=== PATIENT | female | born 1935 | race Caucasian/White ===

== ENCOUNTER 2017-10-30 03:37 | Inpatient (IN) | payer MEDICARE, BC ==
[2017-10-30] VITALS (16 sets, daily range): BP systolic 80–136; BP diastolic 37–60
[~2017-10-30] VITALS: Ht 139.7 cm; Wt 51.7 kg
[2017-10-30] MEDS ORDERED: GABAPENTIN100 MG ORAL (03:54)
[2017-10-30] MEDS ORDERED: PROPRANOLOL HCL40 MG ORAL (03:54)
[2017-10-30] MEDS ORDERED: MELATONIN5 M6 PO (03:54)
[2017-10-30] MEDS ORDERED: VERAPAMIL HCL80 MG ORAL (03:54)
[2017-10-30] MEDS ORDERED: LACTULOSE20 GM/301 ORAL (03:54)
[2017-10-30] MEDS ORDERED: TRAMADOL HCL50 MG ORAL (03:54)
[2017-10-30] MEDS ORDERED: ATIVAN0.5 MG ORAL (03:54)
[2017-10-30] MEDS ORDERED: PRAMIPEXOLE D0.25 MG ORAL (03:54)
[2017-10-30] MEDS ORDERED: FOLIC ACID1 MG ORAL (03:54)
[2017-10-30] MEDS ORDERED: ZETIA10 MG ORAL (03:54)
[2017-10-30] MEDS ORDERED: SERTRALINE HCL25 MG ORAL (03:54)
[2017-10-30] MEDS ORDERED: TORSEMIDE10 MG PO (03:54)
[2017-10-30] MEDS ORDERED: METOCLOPRAMIDE H5 M1 ORAL (03:54)
[2017-10-30] MEDS ORDERED: SYNTHROID75 MCG ORAL (03:54)
[2017-10-30] MEDS ORDERED: SENNA8.6 M2 PO (03:54)
[2017-10-30] MEDS ORDERED: HYDROXYZINE HCL25 M1 PO (03:54)
[2017-10-30] MEDS ORDERED: LANSOPRAZOLE30 MG ORAL (03:54)
[2017-10-30] MEDS ORDERED: PANTOPRAZOLE SO40 MG ORAL (03:54)
[2017-10-30] MEDS ORDERED: BETHANECHOL CHL10 MG ORAL (03:54)
--- NOTE | 2017-10-30 03:58 | Emergency Room Report ---
History of Present Illness General Chief Complaint: Dyspnea/Respdistress Source: Family Member Present Illness HPI Patient presents by paramedics Full reports of respiratory distress Patient was seen by her primary physician yesterday did not appear to have any major symptoms Over the night patient had acute decompensation with respiratory difficulty rat poisoner called paramedics Patient has a feeding tube in place Family reports patient has DO NOT RESUSCITATE status Patient has history of hypertension Unknown regarding recent fever Patient herself is nonverbal and not providing any input Allergies: Coded Allergies: No Known Allergies (Unverified , 10/30/17) Patient History Limited by: medical condition Past Medical History: see triage record Pertinent Family History: unable to obtain Now: No Reviewed Nursing Documentation: PMH: Agreed, PSxH: Agreed Nursing Documentation-PMH Hx Hypertension: Yes Hx Pacemaker: Yes Hx COPD: Yes Review of Systems All Other Systems: limited - Other than the ones mentioned in the history of present illness all others are reviewed however they do stay limited due to the patient's mental status Physical Exam Vital Signs Date Time Temp Pulse Resp B/P (MAP) Pulse Ox O2 Delivery O2 Flow Rate FiO2 10/30/17 03:37 102.4 76 20 156/56 86 Room Air Sp02 EP Interpretation: reviewed, abnormal - 86% is interpreted as low General Appearance: severe distress - Patient is tachypneic with audible crackles and rales Head: normocephalic, atraumatic Eyes: bilateral eye PERRL, bilateral eye EOMI ENT: normal pharynx, no angioedema Neck: full range of motion, supple Respiratory: crackles - Diffusely with audible rales patient is tachypneic with signs of retraction, Cardiovascular #1: regular rate, rhythm, no edema Gastrointestinal: non tender, soft Musculoskeletal: other - No obvious focal deficit, patient however presents in extreme status Neurologic: responsive - to physical stimuli Skin: normal color, no rash Lymphatic: no adenopathy Procedures Critical Care Time Critical Care Time 40 minutes for multiple re\re evaluations initial critical presentation concern for life threatening pathology not including any procedural time Medical Decision Making Diagnostic Impression: Primary Impression: Dyspnea Additional Impressions: Pneumonia Hypoxia Elevated troponin ER Course Patient is a fairly complex patient with multiple differential to consideration including but not limited to cardiac cardiopulmonary and vascular emergencies Upon arrival the patient appears ill Requiring BiPAP for oxygenation Patient received bosselation antibiotic with consideration of possible aspiration pneumonia Patient's troponin is also elevated Is all concerning findings and patient admitted to high level of care Speaking to the patient's primary physician, he reported the patient has had multiple admissions to [facility], history of CHF along with pneumonia Labs Test 10/30/17 03:48 10/30/17 03:55 10/30/17 04:40 10/30/17 05:10 Arterial Blood pH 7.452 (7.350-7.450) Arterial Blood Partial Pressure CO2 48.9 mmHg (35.0-45.0) Arterial Blood Partial Pressure O2 63.3 mmHg (75.0-100.0) Arterial Blood HCO3 33.3 mmol/L (22.0-26.0) Arterial Blood Oxygen Saturation 92.7 % (92.0-98.0) Arterial Blood Base Excess 8.3 Manuel Test Positive White Blood Count 16.0 K/UL (4.8-10.8) Red Blood Count 3.41 M/UL (4.20-5.40) Hemoglobin 10.4 G/DL (12.0-16.0) Hematocrit 31.5 % (37.0-47.0) Mean Corpuscular Volume 92 FL (80-99) Mean Corpuscular Hemoglobin 30.6 PG (27.0-31.0) Mean Corpuscular Hemoglobin Concent 33.1 G/DL (32.0-36.0) Red Cell Distribution Width 13.6 % (11.6-14.8) Platelet Count 202 K/UL (150-450) Mean Platelet Volume 8.9 FL (6.5-10.1) Neutrophils (%) (Auto) 78.5 % (45.0-75.0) Lymphocytes (%) (Auto) 8.0 % (20.0-45.0) Monocytes (%) (Auto) 11.9 % (1.0-10.0) Eosinophils (%) (Auto) 0.4 % (0.0-3.0) Basophils (%) (Auto) 1.2 % (0.0-2.0) Prothrombin Time 10.0 SEC (9.30-11.50) Prothromb Time International Ratio 1.0 (0.9-1.1) Activated Partial Thromboplast Time 28 SEC (23-33) Sodium Level 134 MMOL/L (136-145) Potassium Level 4.7 MMOL/L (3.5-5.1) Chloride Level 93 MMOL/L (98-107) Carbon Dioxide Level 36 MMOL/L (21-32) Anion Gap 5 mmol/L (5-15) Blood Urea Nitrogen 52 mg/dL (7-18) Creatinine 1.5 MG/DL (0.55-1.30) Estimat Glomerular Filtration Rate mL/min (>60) Glucose Level 110 MG/DL (74-106) Lactic Acid Level 2.10 mmol/L (0.66-2.22) 2.20 mmol/L (0.66-2.22) Calcium Level 9.6 MG/DL (8.5-10.1) Total Bilirubin 0.9 MG/DL (0.2-1.0) Aspartate Amino Transf (AST/SGOT) 58 U/L (15-37) Alanine Aminotransferase (ALT/SGPT) 48 U/L (12-78) Alkaline Phosphatase 80 U/L (46-116) Total Creatine Kinase 101 U/L (26-308) Creatine Kinase MB 1.0 NG/ML (0.0-3.6) Creatine Kinase MB Relative Index 0.9 Troponin I 0.174 ng/mL (0.000-0.056) Pro-B-Type Natriuretic Peptide 7958 pg/mL (0-125) Total Protein 9.0 G/DL (6.4-8.2) Albumin 3.3 G/DL (3.4-5.0) Globulin 5.7 g/dL Albumin/Globulin Ratio 0.6 (1.0-2.7) Urine Color Yellow Urine Appearance Clear Urine pH 6 (4.5-8.0) Urine Specific [place] 1.010 (1.005-1.035) Urine Protein Negative (NEGATIVE) Urine Glucose (UA) Negative (NEGATIVE) Urine Ketones Negative (NEGATIVE) Urine Occult Blood Negative (NEGATIVE) Urine Nitrite Negative (NEGATIVE) Urine Bilirubin Negative (NEGATIVE) Urine Urobilinogen Normal MG/DL (0.0-1.0) Urine Leukocyte Esterase 1+ (NEGATIVE) Urine RBC 0-2 /HPF (0 - 2) Urine WBC 0-2 /HPF (0 - 2) Urine Squamous Epithelial Cells Few /LPF (NONE/OCC) Urine Bacteria Few /HPF (NONE) EKG Diagnostic Results Rate: normal Rhythm: other - atrial paced ST Segments: no acute changes Rhythm Strip Diag. Results EP Interpretation: yes Rate: 76 Rhythm: no PVC's, no ectopy, other - paced Chest X-Ray Diagnostic Results Chest X-Ray Diagnostic Results : Chest X-Ray Ordered: Yes # of Views/Limited/Complete: 1 View Indication: Shortness of Breath EP Interpretation: Yes Interpretation: no effusion, no pneumothorax, other - Pulmonary congestion, right parahilar markings and a right lower lobe infiltrate Impression: Other - Congestion and right-sided markings Electronically Signed by: Patricia Dykes DO Last Vital Signs Date Time Temp Pulse Resp B/P (MAP) Pulse Ox O2 Delivery O2 Flow Rate FiO2 10/30/17 03:37 102.4 76 20 156/56 86 Room Air Status: improved Disposition: ADMITTED INPATIENT Condition: Critical PATRICIA DYKES D.O. Oct 30, 2017 03:58
[2017-10-30 04:00] LABS: BASOPHILS % (AUTO) 1.2 % (0.0-2.0); EOSINOPHILS % (AUTO) 0.4 % (0.0-3.0); HEMATOCRIT 31.5 % (37.0-47.0); HEMOGLOBIN 10.4 G/DL (12.0-16.0); MEAN CORPUSCULAR VOLUME 92 FL (80-99); MONOCYTES % (AUTO) 11.9 % (1.0-10.0); NEUTROPHILS % (AUTO) 78.5 % (45.0-75.0); PLATELET COUNT 202 K/UL (150-450); RED BLOOD COUNT 3.41 M/UL (4.20-5.40); RED CELL DISTRIBUTION WIDTH 13.6 % (11.6-14.8)
[2017-10-30] MEDS ORDERED: cefTRIAXone 1 GM in NS 55 ML IVPB ONE (04:00)
[2017-10-30] MEDS ORDERED: Albuterol ud Inhalation HHN ONE (04:00)
[2017-10-30] MEDS ORDERED: Vancomycin 1 GM in NS 275 ML IVPB ONE (04:00)
[2017-10-30 04:21] LABS: ANION GAP 5 mmol/L (5-15); BLOOD UREA NITROGEN 52 mg/dL (7-18); CALCIUM 9.6 MG/DL (8.5-10.1); CARBON DIOXIDE 36 MMOL/L (21-32); CHLORIDE 93 MMOL/L (98-107); CREATININE 1.5 MG/DL (0.55-1.30); POTASSIUM 4.7 MMOL/L (3.5-5.1); SODIUM 134 MMOL/L (136-145)
[2017-10-30] MEDS ORDERED: Acetaminophen 650 MG SUPP RECTAL ONE (04:34)
[2017-10-30 04:35] LABS: ALANINE AMINOTRANSFERASE 48 U/L (12-78); ALBUMIN 3.3 G/DL (3.4-5.0); ALBUMIN/GLOBULIN RATIO 0.6 (1.0-2.7); ALKALINE PHOSPHATASE 80 U/L (46-116); ASPARTATE AMINO TRANSFERASE 58 U/L (15-37); BILIRUBIN,TOTAL 0.9 MG/DL (0.2-1.0); CREATINE KINASE 101 U/L (26-308)
[2017-10-30 04:36] LABS: APPEARANCE,URINE CLEAR; BILIRUBIN, URINE NEGATIVE (NEGATIVE); GLUCOSE, URINE (UA) NEGATIVE (NEGATIVE); KETONES,URINE NEGATIVE (NEGATIVE); LEUKOCYTE ESTERASE ,URINE 1+ (NEGATIVE); PH,URINE 6 (4.5-8.0); PROTEIN,URINE NEGATIVE (NEGATIVE); UROBILINOGEN,URINE NORMAL MG/DL (0.0-1.0)
[2017-10-30] MEDS ORDERED: Acetaminophen 650mg/20.3ml ONE (04:36)
[2017-10-30 04:46] LABS: COLOR,URINE YELLOW; NITRITE,URINE NEGATIVE (NEGATIVE)
[2017-10-30] MEDS ORDERED: Acetaminophen 650mg/20.3ml GT STA (04:55)
[2017-10-30] MEDS ORDERED: Vancomycin 1gm inj IVPB ONE (05:36)
[2017-10-30] MEDS ORDERED: NS 55ml IV ONE (06:00)
[2017-10-30] MEDS ORDERED: Sodium Chloride 500ML 500 ML IV ONE (06:15)
[2017-10-30] MEDS ORDERED: D5 1/2NS w/KCl 20mEq 1,000 ML IV SCH (10:46)
[2017-10-30] MEDS ORDERED: D5W w/KCl 20mEq 1,000 ML IV SCH (11:00)
[2017-10-30] MEDS ORDERED: Pantoprazole Inj IVP SCH (11:00)
[2017-10-30] MEDS ORDERED: Zosyn 3.375gm q12h **Extended infusion IVPB SCH ×2 (12:00)
--- NOTE | 2017-10-30 13:08 | Cardiology Report ---
APPROVED REPORT EKG Measurement Heart [id number] Abnormal ECG Sinus rhythm. Dual-Chamber Pacemaker . 100% V paced.
--- NOTE | 2017-10-30 17:28 | Diagnostic Imaging Report ---
Indication: Dyspnea Technique: XRAY Chest 1v Comparison: None Findings: Heart is enlarged. The chunky mitral annular calcifications. Left-sided dual-lead pacer with lead tips in the expected regions of the right atrium and ventricle. Mediastinal contours are sharp. There is interstitial opacification/edema. There are patchy bilateral airspace opacities. There is no pleural effusion or pneumothorax. Spinal fixation hardware partially visualized. No acute osseous abnormality is seen. Impression: Cardiomegaly with interstitial opacification/edema. Findings may be related to CHF/fluid overload. Pneumonia not entirely excluded. Clinical correlation and follow-up exam recommended. Study acquired via the emergency department however patient admitted to the hospital time of dictation of final report.
--- NOTE | 2017-10-30 21:15 | History and Physical Report ---
DATE OF ADMISSION: 10/30/2017 CHIEF COMPLAINT: Short of breath. HISTORY OF PRESENT ILLNESS: The patient came from home by paramedics. She has been ill for several days with some cough, but suddenly developed worsening symptoms of high fever and the paramedics brought her to the emergency department. She was evaluated and found to have respiratory failure and sepsis with high fever and pneumonia. She was placed on BiPAP and admission was arranged. She is DNR according to the niece, who was at the bedside. PAST MEDICAL HISTORY: The patient had cervical fracture several years ago and has had dysphagia since that time. She has a long-term feeding tube and has had pneumonia a few times, the last being about nine months ago. 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 She has a history of hypertension and hypothyroidism. She has a pacemaker and has a history of COPD. MEDICATIONS: Reviewed and reconciled. ALLERGIES: None. REVIEW OF SYSTEMS: Cannot be obtained other than what is mentioned above. PHYSICAL EXAMINATION: VITAL SIGNS: The initial temperature was 102.4 degrees, but that has improved. Other vital signs showed low saturation, but that has improved. HEENT: Head is normocephalic. She has a face mask in place. CHEST: Has few rales. CARDIAC: Rhythm is regular. ABDOMEN: Soft and nontender with a G-tube in place. EXTREMITIES: Have no edema. LABORATORY AND DIAGNOSTIC DATA: Chest x-ray was reviewed and shows right lower lobe infiltrate. White count is elevated at 16,000, hemoglobin is low at 10.4. Blood gas was reviewed and shows chronic respiratory acidosis. The other laboratory studies were reviewed. IMPRESSION: 1. Acute respiratory failure. 2. Sepsis. 3. Aspiration pneumonia. 4. Chronic dysphagia with recurrent aspiration pneumonia. 5. Chronic obstructive pulmonary disease with chronic respiratory failure. 6. Chronic dysphagia with feeding tube. 7. Acute on chronic kidney disease with elevated creatinine of 1.5. 8. Elevated troponin, possible acute coronary syndrome. PLAN: The patient will be treated with antibiotics. BiPAP. Respiratory treatments. Cardiology consultation will be obtained. I have contacted her primary care physician to arrange for transfer to [facility] if possible according to the family's wishes. Stanislaw Epps M.D. DR: Damian JOB#: [id number] CC:
[2017-10-30] MEDS ORDERED: Acetaminophen 650mg/20.3ml NG PRN (23:45)
[2017-10-31] VITALS (27 sets, daily range): BP systolic 79–115; BP diastolic 35–78
[2017-10-31] MEDS: D5W w/KCl 20mEq 1,000 ML IV SCH ×3 (00:22→21:02)
--- NOTE | 2017-10-31 03:01 | Consultation ---
DATE OF CONSULTATION: 10/30/2017 CARDIOLOGY CONSULTATION CONSULTING PHYSICIAN: Alvin Jenkins M.D. REQUESTING PHYSICIAN: Stanislaw Epps M.D. REASON FOR CONSULTATION: Hypotension and elevated troponin level. HISTORY OF PRESENT ILLNESS: This is an 82-year-old female who lives at home with a caregiver and family members who was brought into the emergency room by paramedics. She had increasing shortness of breath and decompensated overnight. She does have a chronic feeding tube. She saw her primary care physician but was not sick as she became later that night. On initial evaluation in the emergency room, she was febrile to 102.4 with a stable blood pressure. She was then pancultured and admitted to the hospital for pneumonia with oral antibiotics initiated and was also given a dose of furosemide in the emergency room for perceived heart failure. Later that evening, she became increasingly hypotensive and was given a fluid challenge without adequate response. ICU transfer was initiated. PAST MEDICAL HISTORY: Cervical fracture, dysphagia, gastrostomy tube, hypothyroidism, hypertension, permanent pacemaker, and COPD. MEDICATIONS: Reviewed and reconciled. ALLERGIES: None. FAMILY HISTORY: Noncontributory. SOCIAL HISTORY: No record of smoking, alcohol, or substance abuse. REVIEW OF SYSTEMS: Advance directives for DNR. Otherwise detailed information cannot be reliably obtained at this time. PHYSICAL EXAMINATION: VITAL SIGNS: T-max 102.4 now afebrile, blood pressure on arrival 156/78, now 92/45, heart rate 66, and respiratory rate 15. The patient is on BiPAP support. Monitored rhythm is paced. Accessory muscle use. LUNGS: Bilateral rhonchi and rales. HEART: Regular rhythm and rate. Normal S1, paradoxically split S2. Cannot evaluate murmur due to loud respiratory sounds. ABDOMEN: Soft and nontender. G-tube intact. EXTREMITIES: With no edema. LABORATORY AND DIAGNOSTIC DATA: Chest x-ray reveals right lower lobe infiltrate and pulmonary venous congestion. White count 16 and hemoglobin 10. Chemistry panel reviewed. EKG revealed AV sequential pacing. IMPRESSION: 1. Aspiration pneumonia. 2. Sepsis. 3. Shock. 4. Acute respiratory failure. 5. Chronic respiratory acidosis. 6. Component of acute congestive heart failure. 7. Dysphagia with gastrostomy tube. 8. Acute coronary insufficiency with possible non-ST elevation infarction. 9. Permanent pacemaker. 10. Critical and guarded at this time. PLAN: 1. DNR/DNI based on advanced directives. 2. Pressor support. 3. Antimicrobials. 4. Respiratory hygiene. 5. Additional diuresis. 6. Hold all cardiac medications. 7. DVT and stress ulcer prophylaxis. 8. Antiplatelet therapy. Alvin Jenkins M.D. DR: NORY JOB#: [id number] CC:
[2017-10-31 06:11] LABS: HEMOGLOBIN 7.8 G/DL (12.0-16.0); MEAN CORPUSCULAR VOLUME 93 FL (80-99); PLATELET COUNT 149 K/UL (150-450); RED BLOOD COUNT 2.48 M/UL (4.20-5.40); RED CELL DISTRIBUTION WIDTH 13.2 % (11.6-14.8); WHITE BLOOD COUNT 13.8 K/UL (4.8-10.8)
[2017-10-31 06:32] LABS: ALANINE AMINOTRANSFERASE 44 U/L (12-78); ALBUMIN 2.3 G/DL (3.4-5.0); ALBUMIN/GLOBULIN RATIO 0.5 (1.0-2.7); ALKALINE PHOSPHATASE 69 U/L (46-116); ANION GAP 5 mmol/L (5-15); ASPARTATE AMINO TRANSFERASE 44 U/L (15-37); BILIRUBIN,TOTAL 0.6 MG/DL (0.2-1.0); BLOOD UREA NITROGEN 50 mg/dL (7-18); CALCIUM 8.4 MG/DL (8.5-10.1); CARBON DIOXIDE 30 MMOL/L (21-32); CHLORIDE 95 MMOL/L (98-107); CKMB 2.9 NG/ML (0.0-3.6); CREATINE KINASE 284 U/L (26-308); CREATININE 1.7 MG/DL (0.55-1.30); POTASSIUM 4.7 MMOL/L (3.5-5.1); SODIUM 130 MMOL/L (136-145)
[2017-10-31] MEDS ORDERED: Aspirin Baby 81mg GT SCH (09:00)
[2017-10-31] MEDS ORDERED: Pantoprazole Inj IVP SCH (09:00)
[2017-10-31] MEDS: Piperacillin/Tazobactam 3.375 GM in NS 110 ML IVPB SCH ×2 (09:25→21:02)
--- NOTE | 2017-10-31 20:26 | Pulmonolgy Critical Care Note ---
Critical Care - Asmt/Plan Assessment/Plan: 1. Acute respiratory failure. 2. Sepsis. 3. Aspiration pneumonia. 4. Chronic dysphagia with recurrent aspiration pneumonia. 5. Chronic obstructive pulmonary disease with chronic respiratory failure. 6. Chronic dysphagia with feeding tube. 7. Acute on chronic kidney disease with elevated creatinine of 1.5. 8. Elevated troponin, possible acute coronary syndrome. PLAN: abx GT feeds bipap for now check abg and cxr in am unable to diurese due to hypotension, will reasses in am The patient will be treated with antibiotics. BiPAP. Respiratory treatments. 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 Discussed with: nurses, behavioral health case managerfranchise development manager - Objective Last 24 Hour Vital Signs Date Time Temp Pulse Resp B/P (MAP) Pulse Ox O2 Delivery O2 Flow Rate FiO2 10/31/17 19:11 70 21 103/40 100 Bi-pap 10/31/17 18:51 71 21 100 Facial 15.0 90 10/31/17 18:47 68 18 100 15.0 90 10/31/17 18:00 69 21 96/40 100 Bi-pap 90 10/31/17 17:20 70 21 100 Facial 60 10/31/17 17:00 69 21 87/36 100 Bi-pap 90 10/31/17 16:00 70 10/31/17 16:00 105/66 10/31/17 16:00 98.4 72 17 102/78 100 Bi-pap 90 10/31/17 16:00 90 10/31/17 15:05 68 23 100 Facial 60 10/31/17 15:00 70 21 95/69 100 Bi-pap 90 10/31/17 14:01 69 20 90/35 99 Bi-pap 90 10/31/17 13:00 67 19 89/51 100 Bi-pap 90 10/31/17 12:45 66 20 100 Facial 60 10/31/17 12:00 98.4 20 110/54 100 Bi-pap 90 10/31/17 12:00 65 10/31/17 12:00 90 10/31/17 11:00 67 19 92/38 100 Bi-pap 90 10/31/17 10:30 66 18 99 Facial 60 10/31/17 10:00 68 17 91/42 97 Bi-pap 90 10/31/17 09:05 65 18 98 Facial 60 10/31/17 09:00 67 18 108/40 96 Bi-pap 90 10/31/17 08:00 98.6 66 18 98/38 98 Bi-pap 90 10/31/17 08:00 90 10/31/17 08:00 67 10/31/17 07:20 68 20 96 Facial 60 10/31/17 07:00 66 17 102/42 95 Bi-pap 90 10/31/17 06:00 67 18 114/46 97 Bi-pap 90 10/31/17 05:16 66 18 98 Facial 60 10/31/17 05:00 69 16 91/51 99 Bi-pap 90 10/31/17 04:27 69 10/31/17 04:00 97.6 69 15 95/41 98 Bi-pap 90 10/31/17 04:00 90 10/31/17 03:13 62 16 98 Facial 70 10/31/17 03:00 70 16 103/43 99 Bi-pap 90 10/31/17 02:30 70 16 101/43 99 Bi-pap 90 10/31/17 02:00 68 16 83/44 99 Bi-pap 90 10/31/17 01:30 67 15 89/36 99 Bi-pap 90 10/31/17 01:30 67 14 99 Facial 80 10/31/17 01:00 66 14 84/38 99 Bi-pap 90 10/31/17 00:00 97.9 68 14 111/51 98 Bi-pap 90 10/31/17 00:00 90 10/30/17 23:50 67 10/30/17 23:45 66 15 92/45 98 Bi-pap 90 10/30/17 23:30 66 15 99/46 98 Bi-pap 90 10/30/17 23:16 90 10/30/17 23:15 64 15 100/45 98 Bi-pap 90 10/30/17 23:00 69 15 80/37 98 Bi-pap 90 10/30/17 22:57 64 16 100 Facial 90 10/30/17 22:49 63 10/30/17 22:45 97.4 69 14 136/52 98 Bi-pap 90 10/30/17 21:05 62 14 99 Facial 90 Status: awake Condition: critical Lungs: rales, rhonchi Heart: HR/BP unstable Abdomen: soft, non-tender Extremities: edema Micro: Microbiology Date/Time Source Procedure Growth Status 10/30/17 03:45 Blood Blood Culture - Preliminary NO GROWTH AFTER 24 HOURS Resulted 10/30/17 03:30 Blood Blood Culture - Preliminary NO GROWTH AFTER 24 HOURS Resulted 10/30/17 04:30 Nasal Nares Influenza Types A,B Antigen (MEGAN) - Final Complete Accucheck: 125 Blood Sugars: BS controlled Critical Care - Subjective ROS Limited/Unobtainable: Yes Interval Events: n bipap 09/22 TCV around 400 cc Condition: critical FI02: 90 Vent Support Breath Rate: 12 Vent Support Mode: BiLevel Sputum Amount: Moderate I&O: Intake and Output 10/30/17 10/31/17 19:00 07:00 Intake Total 0 ml 1485 ml Output Total 570 ml Balance 0 ml 915 ml Intake Oral 0 ml 0 ml IV Total 1485 ml Output Urine Total 570 ml Subjective: on bipap mild distress no reports of cp nv or bleeding not getting oob no fever noted still tachy CXR: cxr yesterday reviewed with chf and effusions Labs: Laboratory Tests Test 10/31/17 04:00 10/31/17 05:12 Troponin I 0.159 ng/mL (0.000-0.056) White Blood Count 13.8 K/UL (4.8-10.8) H Red Blood Count 2.48 M/UL (4.20-5.40) L Hemoglobin 7.8 G/DL (12.0-16.0) L Hematocrit 23.0 % (37.0-47.0) L Mean Corpuscular Volume 93 FL (80-99) Mean Corpuscular Hemoglobin 31.2 PG (27.0-31.0) H Mean Corpuscular Hemoglobin Concent 33.8 G/DL (32.0-36.0) Red Cell Distribution Width 13.2 % (11.6-14.8) Platelet Count 149 K/UL (150-450) L Mean Platelet Volume 9.0 FL (6.5-10.1) Neutrophils (%) (Auto) % (45.0-75.0) Lymphocytes (%) (Auto) % (20.0-45.0) Monocytes (%) (Auto) % (1.0-10.0) Eosinophils (%) (Auto) % (0.0-3.0) Basophils (%) (Auto) % (0.0-2.0) Differential Total Cells Counted 100 Neutrophils % (Manual) 75 % (45-75) Lymphocytes % (Manual) 14 % (20-45) L Monocytes % (Manual) 5 % (1-10) Eosinophils % (Manual) 0 % (0-3) Basophils % (Manual) 0 % (0-2) Band Neutrophils 6 % (0-8) Platelet Estimate Adequate Platelet Morphology Normal Hypochromasia 1+ Sodium Level 130 MMOL/L (136-145) L Potassium Level 4.7 MMOL/L (3.5-5.1) Chloride Level 95 MMOL/L (98-107) L Carbon Dioxide Level 30 MMOL/L (21-32) Anion Gap 5 mmol/L (5-15) Blood Urea Nitrogen 50 mg/dL (7-18) H Creatinine 1.7 MG/DL (0.55-1.30) H Estimat Glomerular Filtration Rate mL/min (>60) Glucose Level 107 MG/DL (74-106) H Calcium Level 8.4 MG/DL (8.5-10.1) L Magnesium Level 1.9 MG/DL (1.8-2.4) Total Bilirubin 0.6 MG/DL (0.2-1.0) Aspartate Amino Transf (AST/SGOT) 44 U/L (15-37) H Alanine Aminotransferase (ALT/SGPT) 44 U/L (12-78) Alkaline Phosphatase 69 U/L (46-116) Total Creatine Kinase 284 U/L (26-308) Creatine Kinase MB 2.9 NG/ML (0.0-3.6) Creatine Kinase MB Relative Index 1.0 Pro-B-Type Natriuretic Peptide 38800 pg/mL (0-125) H Total Protein 7.1 G/DL (6.4-8.2) Albumin 2.3 G/DL (3.4-5.0) L Globulin 4.8 g/dL Albumin/Globulin Ratio 0.5 (1.0-2.7) L KOSSUTH,HARISH DO Oct 31, 2017 20:26
[2017-10-31] MEDS ORDERED: traMADol 50mg tab GT PRN (20:45)
[2017-10-31] MEDS: Metoclopramide 10mg/10ml Liq NG SCH (22:26)
[2017-11-01] VITALS (12 sets, daily range): BP systolic 83–121; BP diastolic 33–67
--- NOTE | 2017-11-01 04:45 | Progress Note ---
DATE: 10/31/2017 CARDIOLOGY PROGRESS NOTE SUBJECTIVE: The patient remains in the intensive care unit due to low range of blood pressure. She is being tapered off pressors. She remains on BiPAP support at times. OBJECTIVE: VITAL SIGNS: Blood pressure 96/40, pulse 69, and respirations 21. LUNGS: Coarse breath sounds. Scattered rhonchi. Diminished at the left base. HEART: Regular rhythm and rate. Normal S1, S2 with no murmur. ABDOMEN: Soft. EXTREMITIES: Trace edema. IMPRESSION: 1. Sepsis shock. 2. Aspiration pneumonia. 3. Dysphagia. 4. Gastrostomy tube. 5. Chronic obstructive pulmonary disease. 6. Acute on chronic renal failure. 7. Acute myocardial ischemia. 8. Acute diastolic congestive heart failure. 9. Pleural effusion. PLAN: 1. Unable to diurese with low blood pressure. 2. Continue BiPAP support. 3. Nutrition by G-tube. 4. Antimicrobials. 5. Respiratory hygiene. 6. Taper off pressors and no resumption. 7. Thoracentesis maybe asymptomatic or beneficial. Alvin Jenkins M.D. DR: SADIQ JOB#: [id number] CC:
[2017-11-01] MEDS: Metoclopramide 10mg/10ml Liq NG SCH ×4 (05:53→21:14)
[2017-11-01] MEDS ORDERED: Vancomycin 750mg/NS 250ml 250 ML IVPB SCH (06:00)
[2017-11-01] MEDS ORDERED: Vancomycin 750mg/NS 250ml IVPB SCH (06:00)
[2017-11-01 08:28] LABS: BASOPHILS % (AUTO) 0.3 % (0.0-2.0); EOSINOPHILS % (AUTO) 1.3 % (0.0-3.0); HEMATOCRIT 24.3 % (37.0-47.0); HEMOGLOBIN 8.2 G/DL (12.0-16.0); LYMPHOCYTES % (AUTO) 9.2 % (20.0-45.0); MEAN CORPUSCULAR VOLUME 92 FL (80-99); MONOCYTES % (AUTO) 7.9 % (1.0-10.0); NEUTROPHILS % (AUTO) 81.3 % (45.0-75.0); PLATELET COUNT 168 K/UL (150-450); RED BLOOD COUNT 2.64 M/UL (4.20-5.40); RED CELL DISTRIBUTION WIDTH 12.8 % (11.6-14.8); WHITE BLOOD COUNT 11.1 K/UL (4.8-10.8)
[2017-11-01 08:52] LABS: ANION GAP 6 mmol/L (5-15); BLOOD UREA NITROGEN 37 mg/dL (7-18); CALCIUM 8.4 MG/DL (8.5-10.1); CARBON DIOXIDE 28 MMOL/L (21-32); CHLORIDE 97 MMOL/L (98-107); CREATININE 1.4 MG/DL (0.55-1.30); POTASSIUM 4.5 MMOL/L (3.5-5.1); SODIUM 130 MMOL/L (136-145)
[2017-11-01] MEDS: Piperacillin/Tazobactam 3.375 GM in NS 110 ML IVPB SCH ×3 (09:00→21:14)
[2017-11-01] MEDS: D5W w/KCl 20mEq 1,000 ML IV SCH ×3 (10:00→23:48)
[2017-11-01] MEDS: Aspirin Baby 81mg GT SCH (10:12)
[2017-11-01] MEDS: Pantoprazole Inj IVP SCH (10:13)
--- NOTE | 2017-11-01 13:07 | Diagnostic Imaging Report ---
Indication: Cough Technique: XRAY Chest 1v Comparison: 10/30/2017 Findings: Heart size and mediastinal contours are stable. Pacemaker again noted. Interval worsening of aeration with development of focal opacity in the right midlung. There is interstitial opacification/edema. Question trace right pleural effusion. No pneumothorax. Impression: Cardiomegaly with interstitial opacification/edema and development of focal opacity in the right midlung most concerning for pneumonia. Clinical correlation and follow-up exam recommended.
[2017-11-01] MEDS ORDERED: LORazepam 0.5mg tab GT SCH (16:30)
[2017-11-01] MEDS: LORazepam 0.5mg tab GT SCH (17:24)
--- NOTE | 2017-11-01 19:46 | Pulmonology Progress Note ---
Assessment/Plan Assessment/Plan 1. Acute respiratory failure. 2. Sepsis. 3. Aspiration pneumonia. incrased RML infiltrate 4. Chronic dysphagia with recurrent aspiration pneumonia. 5. Chronic obstructive pulmonary disease with chronic respiratory failure. 6. Chronic dysphagia with feeding tube. 7. Acute on chronic kidney disease with elevated creatinine of 1.5. 8. Elevated troponin, possible acute coronary syndrome. PLAN: abx GT feeds bipap for now qhs and prn distress add nebs check cxr in am unable to diurese due to hypotension, will reassess in am fu with cards recommendations pt is DN titrate o2 wound care may need thoracentesis as well Subjective ROS Limited/Unobtainable: Yes Constitutional: Reports: no symptoms Allergies: Coded Allergies: No Known Allergies (Unverified , 10/30/17) Subjective off bipap at this time on FM awake no distress tolerating tf no reports of CP NV or bleeding does not get oob CG at the bedside CXR wtih new RML infiltrate, suspected PNA Objective Last 24 Hour Vital Signs Date Time Temp Pulse Resp B/P (MAP) Pulse Ox O2 Delivery O2 Flow Rate FiO2 11/01/17 17:08 99.0 86 20 107/50 Venturi Mask 45 86 11/01/17 16:00 85 11/01/17 16:00 99.0 86 20 107/50 97 Venturi Mask 45 86 11/01/17 12:00 80 11/01/17 12:00 80 11/01/17 12:00 97.7 82 20 105/67 93 Venturi Mask 45 82 11/01/17 11:27 Venturi Mask 10.0 45 11/01/17 11:26 98 Venturi Mask 10.0 45 11/01/17 09:29 69 18 99 Facial 60 11/01/17 08:03 64 11/01/17 08:00 60 11/01/17 07:18 66 15 99 Facial 60 11/01/17 07:00 64 14 121/42 100 Bi-pap 60 11/01/17 06:00 64 15 97/44 100 Bi-pap 60 11/01/17 05:27 66 17 100 Facial 60 11/01/17 05:00 62 16 103/35 100 Bi-pap 60 11/01/17 04:00 98.0 66 16 109/40 100 Bi-pap 60 1/14/18 04:00 60 11/01/17 03:50 64 11/01/17 03:41 64 17 100 Facial 15.0 60 11/01/17 03:00 62 17 83/43 100 Bi-pap 60 11/01/17 02:00 61 15 83/40 100 Bi-pap 60 11/01/17 01:29 65 15 100 15.0 60 11/01/17 01:00 65 15 91/33 100 Bi-pap 60 11/01/17 00:00 98.0 66 17 86/35 100 Bi-pap 60 11/01/17 00:00 60 11/01/17 00:00 66 10/31/17 23:26 69 18 100 Facial 60 10/31/17 23:00 70 21 88/49 100 Bi-pap 60 10/31/17 22:00 72 20 114/42 100 Bi-pap 60 10/31/17 21:33 70 15 100 Facial 60 10/31/17 21:00 69 19 93/40 100 Bi-pap 60 10/31/17 20:00 60 10/31/17 20:00 98.6 71 19 79/54 100 Bi-pap 60 10/31/17 20:00 71 Intake and Output 10/31/17 11/01/17 19:00 07:00 Intake Total 75 ml 1510.000 ml Output Total 590 ml 1045 ml Balance -515 ml 465.000 ml Intake Oral 0 ml 0 ml IV Total 75 ml 1260.000 ml Tube Feeding 100 ml Other 150 ml Output Urine Total 590 ml 1045 ml General Appearance: cachetic HEENT: atraumatic, anicteric Respiratory/Chest: rhonchi Cardiovascular: normal rate, regular rhythm, murmur systolic, edema Abdomen: soft, non tender, no organomegaly Extremities: no clubbing Skin: no ulcers Neurologic/Psychiatric: responsive, disoriented Microbiology Date/Time Source Procedure Growth Status 10/30/17 03:45 Blood Blood Culture - Preliminary NO GROWTH AFTER 48 HOURS Resulted 10/30/17 03:30 Blood Blood Culture - Preliminary NO GROWTH AFTER 48 HOURS Resulted 10/30/17 04:30 Nasal Nares Influenza Types A,B Antigen (MEGAN) - Final Complete Laboratory Tests 11/01/17 08:00: White Blood Count 11.1H, Red Blood Count 2.64L, Hemoglobin 8.2L, Hematocrit 24.3L, Mean Corpuscular Volume 92, Mean Corpuscular Hemoglobin 31.1H, Mean Corpuscular Hemoglobin Concent 33.9, Red Cell Distribution Width 12.8, Platelet Count 168, Mean Platelet Volume 8.6, Neutrophils (%) (Auto) 81.3H, Lymphocytes ( %) (Auto) 9.2L, Monocytes (%) (Auto) 7.9, Eosinophils (%) (Auto) 1.3, Basophils (%) (Auto) 0.3, Sodium Level 130L, Potassium Level 4.5, Chloride Level 97L, Carbon Dioxide Level 28, Anion Gap 6, Blood Urea Nitrogen 37H, Creatinine 1.4H, Estimat Glomerular Filtration Rate , Glucose Level 117H, Calcium Level 8.4L, Troponin I 0.129H, Pro-B-Type Natriuretic Peptide [id number] 11/01/17 09:30: Arterial Blood pH 7.455H, Arterial Blood Partial Pressure CO2 39.8, Arterial Blood Partial Pressure O2 151.0H, Arterial Blood HCO3 27.4H, Arterial Blood Oxygen Saturation 99.1H, Arterial Blood Base Excess 3.2, Manuel Test Positive Current Medications Medications (Trade) Dose Ordered Sig/Mary Route PRN Reason Start Time Stop Time Status Last Admin Dose Admin Acetaminophen (Tylenol) 650 mg Q4H PRN NG fever or pain 11/01/17 09:00 12/01/17 08:59 Aspirin (ASA) 81 mg DAILY GT 11/01/17 09:00 11/30/17 08:59 11/01/17 10:12 Dextrose (Dextrose 50%) STAT PRN IV Hypoglycemia 11/01/17 10:30 11/29/17 10:29 Dextrose/ Electrolytes 1,000 ml @ 75 mls/hr [id number] IV 11/01/17 10:00 11/29/17 09:59 11/01/17 10:00 Folic Acid (Folate) 1 mg DAILY GT 11/01/17 09:00 12/01/17 08:59 11/01/17 10:12 Gabapentin (Neurontin) 100 mg THREE TIMES A DAY GT 11/01/17 09:00 11/30/17 21:59 11/01/17 17:24 Levothyroxine Sodium (Synthroid) 75 mcg DAILY@0630 GT 11/02/17 06:30 12/01/17 06:29 Lorazepam (Ativan) 0.5 mg BEFORE DINNER GT 11/01/17 16:30 11/08/17 16:29 11/01/17 17:24 Metoclopramide HCl (Reglan) 5 mg AC+HS NG 11/01/17 11:30 11/30/17 21:59 11/01/17 17:24 Pantoprazole (Protonix) 40 mg DAILY IVP 11/01/17 09:00 11/29/17 10:59 11/01/17 10:13 Piperacillin Sod/ Tazobactam Sod 3.375 gm/Sodium Chloride 110 ml @ 27.5 mls/hr EVERY 12 HOURS IVPB 11/01/17 09:00 11/06/17 08:59 Tramadol HCl (Ultram) 50 mg Q6H PRN GT for back pain 11/01/17 14:45 11/07/17 20:44 Vancomycin HCl (Vanco rx to dose) 1 ea DAILY PRN MISC Per rx protocol 11/01/17 09:00 11/29/17 10:14 Vancomycin/Sodium Chloride 250 ml @ 166.667 mls/hr Q48H IVPB 11/03/17 06:00 11/06/17 05:59 HARISH RIVERO DO Nov 01, 2017 19:46
[2017-11-01] MEDS ORDERED: NS 500ML ONE (21:13)
[2017-11-01] MEDS: Albuterol/Ipratropium 3ml neb HHN SCH (23:00)
[2017-11-02] VITALS: BP 119/56
[2017-11-02] MEDS: Acetaminophen 650mg/20.3ml NG PRN ×2 (00:10→20:38)
[2017-11-02] MEDS: Albuterol/Ipratropium 3ml neb HHN SCH ×6 (03:54→22:38)
[2017-11-02 04:00] VITALS: BP 94/52
[2017-11-02 04:43] LABS: BASOPHILS % (AUTO) 0.3 % (0.0-2.0); HEMATOCRIT 29.3 % (37.0-47.0); HEMOGLOBIN 9.5 G/DL (12.0-16.0); LYMPHOCYTES % (AUTO) 15.3 % (20.0-45.0); MEAN CORPUSCULAR VOLUME 91 FL (80-99); MONOCYTES % (AUTO) 9.7 % (1.0-10.0); NEUTROPHILS % (AUTO) 73.7 % (45.0-75.0); PLATELET COUNT 216 K/UL (150-450); RED BLOOD COUNT 3.21 M/UL (4.20-5.40); RED CELL DISTRIBUTION WIDTH 13.3 % (11.6-14.8); WHITE BLOOD COUNT 12.6 K/UL (4.8-10.8)
[2017-11-02 05:03] LABS: ANION GAP 9 mmol/L (5-15); BLOOD UREA NITROGEN 25 mg/dL (7-18); CALCIUM 8.9 MG/DL (8.5-10.1); CARBON DIOXIDE 27 MMOL/L (21-32); CHLORIDE 98 MMOL/L (98-107); CREATININE 1.2 MG/DL (0.55-1.30); POTASSIUM 4.4 MMOL/L (3.5-5.1); SODIUM 134 MMOL/L (136-145)
[2017-11-02] MEDS: Metoclopramide 10mg/10ml Liq NG SCH ×4 (06:23→20:37)
[2017-11-02 08:00] VITALS: BP 102/52
[2017-11-02] MEDS: Piperacillin/Tazobactam 3.375 GM in NS 110 ML IVPB SCH ×2 (08:15→20:37)
[2017-11-02] MEDS: Aspirin Baby 81mg GT SCH (08:16)
[2017-11-02] MEDS: Pantoprazole Inj IVP SCH (08:16)
--- NOTE | 2017-11-02 09:41 | Diagnostic Imaging Report ---
Indication: Chest pain Technique: XRAY Chest 1v Comparison: 11/01/2017 Findings: Heart size and mediastinal contours are stable. Pacemaker unchanged in position. Interstitial edema/opacification is slightly improved. There is persistent dense opacity in the right mid/lower lung which is slightly decreased compared to the prior exam. No large pleural effusion. No definite pneumothorax. No acute osseous abnormality.. Impression: Persistent dense opacity in the right mid/lower lung likely representing pneumonia, slightly decreased compared to the prior exam.
[2017-11-02] MEDS: Docusate 100mg/10ml Liq NG SCH ×2 (10:45→17:26)
[2017-11-02 12:00] VITALS: BP 111/55
--- NOTE | 2017-11-02 12:48 | Pulmonology Progress Note ---
Assessment/Plan Assessment/Plan 1. Sepsis shock, resolved 2. Aspiration pneumonia. 3. Dysphagia. 4. Gastrostomy tube. 5. Chronic obstructive pulmonary disease. 6. Acute on chronic renal failure. 7. Acute myocardial ischemia. 8. Acute diastolic congestive heart failure. 9. Pleural effusion. PLAN: 1. blood pressure better 2. Continue BiPAP support at night 3. Nutrition by G-tube. 4. Antimicrobials. 5. Respiratory hygiene. 6. Off pressors and no resumption. 7. Thoracentesis not needed 8. Reduce IVF Subjective ROS Limited/Unobtainable: Yes Allergies: Coded Allergies: No Known Allergies (Unverified , 10/30/17) Objective Last 24 Hour Vital Signs Date Time Temp Pulse Resp B/P (MAP) Pulse Ox O2 Delivery O2 Flow Rate FiO2 11/02/17 12:00 98.1 101 22 111/55 97 Venturi Mask 45 11/02/17 11:44 108 11/02/17 10:50 95 22 98 Venturi Mask 10.0 45 11/02/17 10:41 92 18 95 Venturi Mask 10.0 45 11/02/17 08:10 91 11/02/17 08:00 97.9 70 21 102/52 96 Venturi Mask 45 11/02/17 07:02 87 20 98 Venturi Mask 10.0 45 11/02/17 06:53 92 Venturi Mask 10.0 45 11/02/17 06:53 Venturi Mask 10.0 45 11/02/17 06:53 84 20 92 Venturi Mask 10.0 45 11/02/17 04:00 97.9 88 20 94/52 95 Venturi Mask 45 11/02/17 03:59 67 21 100 Venturi Mask 45 11/02/17 03:57 87 11/02/17 03:55 73 22 92 Venturi Mask 10.0 45 11/02/17 00:40 98.3 11/02/17 00:00 96 11/02/17 00:00 100.0 96 18 119/56 94 Venturi Mask 45 11/01/17 20:00 99.3 87 20 104/48 93 Venturi Mask 45 11/01/17 20:00 93 11/01/17 19:20 Venturi Mask 10.0 45 11/01/17 19:20 98 Venturi Mask 10.0 45 11/01/17 17:08 99.0 86 20 107/50 Venturi Mask 45 86 11/01/17 16:00 85 11/01/17 16:00 99.0 86 20 107/50 97 Venturi Mask 45 86 Intake and Output 11/01/17 11/02/17 19:00 07:00 Intake Total 1330 ml 1450.0 ml Output Total 900 ml 1900 ml Balance 430 ml -450.0 ml Free Water 400 ml 100 ml IV Total 150 ml 950.0 ml Tube Feeding 480 ml 400 ml Other 300 ml Output Urine Total 900 ml 1900 ml # Bowel Movements 1 General Appearance: no acute distress HEENT: normocephalic Respiratory/Chest: crackles/rales Cardiovascular: normal rate Abdomen: soft, non tender, no organomegaly Laboratory Tests 11/02/17 03:55: White Blood Count 12.6H, Red Blood Count 3.21L, Hemoglobin 9.5L, Hematocrit 29.3L, Mean Corpuscular Volume 91, Mean Corpuscular Hemoglobin 29.7, Mean Corpuscular Hemoglobin Concent 32.5, Red Cell Distribution Width 13.3, Platelet Count 216, Mean Platelet Volume 8.3, Neutrophils (%) (Auto) 73.7, Lymphocytes (% ) (Auto) 15.3L, Monocytes (%) (Auto) 9.7, Eosinophils (%) (Auto) 1.0, Basophils (%) (Auto) 0.3, Sodium Level 134L, Potassium Level 4.4, Chloride Level 98, Carbon Dioxide Level 27, Anion Gap 9, Blood Urea Nitrogen 25H, Creatinine 1.2, Estimat Glomerular Filtration Rate , Glucose Level 146H, Calcium Level 8.9, Pro- B-Type Natriuretic Peptide [id number] Current Medications Medications (Trade) Dose Ordered Sig/Mary Route PRN Reason Start Time Stop Time Status Last Admin Dose Admin Acetaminophen (Tylenol) 650 mg Q4H PRN NG fever or pain 11/01/17 09:00 12/01/17 08:59 11/02/17 00:10 Albuterol/ Ipratropium (Albuterol/ Ipratropium) 3 ml Q4HRT HHN 11/01/17 23:00 11/06/17 22:59 11/02/17 10:40 Aspirin (ASA) 81 mg DAILY GT 11/01/17 09:00 11/30/17 08:59 1/15/18 08:16 Dextrose (Dextrose 50%) STAT PRN IV Hypoglycemia 11/01/17 10:30 11/29/17 10:29 Docusate Sodium (Colace) 100 mg TWICE A DAY NG 11/02/17 10:00 12/02/17 09:59 11/02/17 10:45 Folic Acid (Folate) 1 mg DAILY GT 11/01/17 09:00 12/01/17 08:59 11/02/17 08:16 Gabapentin (Neurontin) 100 mg THREE TIMES A DAY GT 11/01/17 09:00 11/30/17 21:59 11/02/17 08:16 Levothyroxine Sodium (Synthroid) 75 mcg DAILY@0630 GT 11/02/17 06:30 12/01/17 06:29 11/02/17 06:23 Lorazepam (Ativan) 0.5 mg BEFORE DINNER GT 11/01/17 16:30 11/08/17 16:29 11/01/17 17:24 Metoclopramide HCl (Reglan) 5 mg AC+HS NG 11/01/17 11:30 11/30/17 21:59 11/02/17 10:45 Pantoprazole (Protonix) 40 mg DAILY IVP 11/01/17 09:00 11/29/17 10:59 11/02/17 08:16 Piperacillin Sod/ Tazobactam Sod 3.375 gm/Sodium Chloride 110 ml @ 27.5 mls/hr EVERY 12 HOURS IVPB 11/01/17 09:00 11/06/17 08:59 11/02/17 08:15 Tramadol HCl (Ultram) 50 mg Q6H PRN GT for back pain 11/01/17 14:45 11/07/17 20:44 Vancomycin HCl (Vanco rx to dose) 1 ea DAILY PRN MISC Per rx protocol 11/01/17 09:00 11/29/17 10:14 Vancomycin/Sodium Chloride 250 ml @ 166.667 mls/hr Q48H IVPB 11/03/17 06:00 11/06/17 05:59 LYDIA ANDERSEN Nov 02, 2017 12:48
--- NOTE | 2017-11-02 13:00 | Progress Note ---
DATE: 11/01/2017 CARDIOLOGY PROGRESS NOTE SUBJECTIVE: The patient remains in the intensive care unit. Blood pressure parameters are improved, but marginal. OBJECTIVE: VITAL SIGNS: Temperature 99 degrees, blood pressure 107/50, heart rate 86, and respiratory rate 20. NECK: Supple. LUNGS: With bilateral rales, left much greater than right. CARDIAC: Regular rhythm and rate. Normal S1 and S2 with a fourth heart sound. ABDOMEN: Soft. EXTREMITIES: Trace edema. G-tube intact. IMPRESSION: 1. Healthcare-acquired aspiration pneumonia. 2. Dysphagia with gastrostomy tube. 3. Acute on chronic diastolic congestive heart failure. 4. Sepsis with recovering shock. 5. Pleural effusion. PLAN: 1. We will diurese. 2. Observe for drop in blood pressure. 3. Continue antimicrobials. 4. Respiratory hygiene. 5. Consider thoracentesis. 6. Follow up venous Duplex scan. 7. Avoid pressors. Alvin Jenkins M.D. DR: LELAND/parrish JOB#: [id number] CC:
[2017-11-02 16:00] VITALS: BP 110/61
[2017-11-02] MEDS: LORazepam 0.5mg tab GT SCH (16:12)
[2017-11-02] MEDS ORDERED: Docusate 100mg cap ORAL SCH (18:00)
[2017-11-02] MEDS: traMADol 50mg tab GT PRN (18:46)
[2017-11-02 20:00] VITALS: BP 107/67
[2017-11-03] VITALS: BP 94/61
[2017-11-03] MEDS: Propranolol 40mg tab ORAL SCH ×4 (00:57→21:48)
--- NOTE | 2017-11-03 02:31 | Progress Note ---
DATE: 11/02/2017 CARDIOLOGY PROGRESS NOTE SUBJECTIVE: The patient has less congestion, but still with moderate secretions. She is also tachycardic today. No chest pain. OBJECTIVE: VITALS: Blood pressure 107/67, pulse 111, respirations 24, and temperature 99.4. LUNGS: Coarse breath sounds with rhonchi and rales. HEART: Regular rhythm. Rapid rate. Normal S1, S2. ABDOMEN: Soft. G-tube intact. EXTREMITIES: Trace edema. LABORATORY DATA: White count 12.6 and hemoglobin 9.5. Pro-natriuretic peptide 18,000. Potassium 4.4, BUN 25, and creatinine 1.2. ABG, pH 7.54, pCO2 29, and pO2 71. Chest x-ray reveals persistent infiltrates and minimally decreased pulmonary venous congestion. IMPRESSION: 1. Rebound sinus tachycardia, off the usual dose of Inderal. 2. Bilateral pneumonia. 3. Acute on chronic diastolic congestive heart failure. 4. Dysphagia with gastrostomy tube. PLAN: 1. Diuresis. 2. Resume beta-olga. 3. Continue antimicrobials and respiratory hygiene. 4. DVT prophylaxis. Alvin Jenkins M.D. DR: JOE JOB#: [id number] CC:
[2017-11-03] MEDS: Albuterol/Ipratropium 3ml neb HHN SCH ×6 (03:13→22:39)
[2017-11-03 04:00] VITALS: BP 113/59
[2017-11-03] MEDS ORDERED: Vancomycin 750mg/NS 250ml 250 ML IVPB SCH (06:00)
[2017-11-03 06:14] LABS: HEMATOCRIT 24.2 % (37.0-47.0); HEMOGLOBIN 7.9 G/DL (12.0-16.0); MEAN CORPUSCULAR VOLUME 92 FL (80-99); PLATELET COUNT 201 K/UL (150-450); RED BLOOD COUNT 2.64 M/UL (4.20-5.40); RED CELL DISTRIBUTION WIDTH 13.1 % (11.6-14.8)
[2017-11-03] MEDS: Metoclopramide 10mg/10ml Liq NG SCH ×4 (06:19→21:48)
[2017-11-03 06:31] LABS: ALANINE AMINOTRANSFERASE 38 U/L (12-78); ALBUMIN 2.1 G/DL (3.4-5.0); ALBUMIN/GLOBULIN RATIO 0.4 (1.0-2.7); ALKALINE PHOSPHATASE 117 U/L (46-116); ANION GAP 11 mmol/L (5-15); ASPARTATE AMINO TRANSFERASE 45 U/L (15-37); BILIRUBIN,TOTAL 0.7 MG/DL (0.2-1.0); BLOOD UREA NITROGEN 28 mg/dL (7-18); CALCIUM 8.7 MG/DL (8.5-10.1); CARBON DIOXIDE 27 MMOL/L (21-32); CHLORIDE 97 MMOL/L (98-107); CREATININE 1.4 MG/DL (0.55-1.30); POTASSIUM 4.2 MMOL/L (3.5-5.1); SODIUM 135 MMOL/L (136-145)
[2017-11-03 08:00] VITALS: BP 103/60
[2017-11-03] MEDS: Piperacillin/Tazobactam 3.375 GM in NS 110 ML IVPB SCH ×2 (08:24→21:48)
[2017-11-03] MEDS: Docusate 100mg/10ml Liq NG SCH ×2 (08:24→17:07)
[2017-11-03] MEDS: Aspirin Baby 81mg GT SCH (08:25)
[2017-11-03] MEDS: Pantoprazole Inj IVP SCH (08:25)
[2017-11-03 10:23] LABS: BASOPHILS % (AUTO) 0.8 % (0.0-2.0); EOSINOPHILS % (AUTO) 1.2 % (0.0-3.0); HEMATOCRIT 25.1 % (37.0-47.0); HEMOGLOBIN 8.2 G/DL (12.0-16.0); MEAN CORPUSCULAR VOLUME 91 FL (80-99); MONOCYTES % (AUTO) 14.8 % (1.0-10.0); NEUTROPHILS % (AUTO) 71.2 % (45.0-75.0); PLATELET COUNT 193 K/UL (150-450); RED BLOOD COUNT 2.76 M/UL (4.20-5.40); RED CELL DISTRIBUTION WIDTH 12.9 % (11.6-14.8); WHITE BLOOD COUNT 10.3 K/UL (4.8-10.8)
[2017-11-03 12:00] VITALS: BP 100/53
[2017-11-03] MEDS: Ferrous Sulfate 300 MG/5 ML UDC NG SCH ×2 (12:27→17:07)
--- NOTE | 2017-11-03 14:42 | Pulmonology Progress Note ---
Assessment/Plan Assessment/Plan 1. Sepsis shock, resolved 2. Aspiration pneumonia. 3. Dysphagia. 4. Gastrostomy tube. 5. Chronic obstructive pulmonary disease. 6. Acute on chronic renal failure. 7. Acute myocardial ischemia. 8. Acute diastolic congestive heart failure. 9. Pleural effusion. PLAN: 1. blood pressure stable 2. Continue BiPAP support at night 3. Nutrition by G-tube. 4. Antimicrobials. 5. Respiratory hygiene. 6. disc w niece, PMD hope for dc home tomorrow w HH Subjective ROS Limited/Unobtainable: Yes Allergies: Coded Allergies: No Known Allergies (Unverified , 10/30/17) Objective Last 24 Hour Vital Signs Date Time Temp Pulse Resp B/P (MAP) Pulse Ox O2 Delivery O2 Flow Rate FiO2 11/03/17 14:00 75 100/53 11/03/17 12:00 75 11/03/17 12:00 98.2 68 20 100/53 98 Venturi Mask 45 11/03/17 11:13 78 22 98 Nasal Cannula 4.0 36 11/03/17 11:04 72 18 96 Nasal Cannula 4.0 36 11/03/17 08:00 98.3 72 20 103/60 98 Venturi Mask 11/03/17 07:37 71 11/03/17 07:20 74 20 97 Venturi Mask 10.0 45 11/03/17 07:10 Venturi Mask 10.0 45 11/03/17 07:10 72 20 97 Venturi Mask 10.0 45 11/03/17 07:10 97 Venturi Mask 10.0 45 11/03/17 06:19 82 11/03/17 04:00 80 11/03/17 04:00 98.7 72 24 113/59 92 Venturi Mask 11/03/17 03:24 101 22 98 Venturi Mask 10.0 45 11/03/17 03:13 79 20 95 Venturi Mask 10.0 45 11/03/17 00:57 140 11/03/17 00:00 142 11/03/17 00:00 99.7 144 24 94/61 99 Venturi Mask 11/02/17 22:46 104 22 99 Venturi Mask 10.0 45 11/02/17 22:38 109 22 96 Venturi Mask 10.0 45 11/02/17 20:00 99.4 111 24 107/67 96 Venturi Mask 45 11/02/17 19:01 102 22 99 Venturi Mask 10.0 45 11/02/17 18:54 114 22 97 Venturi Mask 10.0 45 11/02/17 18:54 Venturi Mask 10.0 45 11/02/17 18:53 97 Venturi Mask 10.0 45 11/02/17 16:00 110 11/02/17 16:00 97.7 109 23 110/61 97 Venturi Mask 45 11/02/17 14:55 74 22 98 Venturi Mask 10.0 45 11/02/17 14:44 103 22 94 Venturi Mask 10.0 45 Intake and Output 11/02/17 11/03/17 19:00 07:00 Intake Total 1055.0 ml 630.0 ml Output Total 700 ml Balance 1055.0 ml -70.0 ml Free Water 130 ml 200 ml IV Total 335.0 ml 110.0 ml Tube Feeding 530 ml 320 ml Other 60 ml Output Urine Total 700 ml General Appearance: no acute distress HEENT: atraumatic Respiratory/Chest: rhonchi Cardiovascular: normal rate Microbiology Date/Time Source Procedure Growth Status 11/02/17 18:00 Sputum Induced Gram Stain - Final Resulted 11/02/17 18:00 Sputum Induced Sputum Culture Pending Resulted Laboratory Tests 11/02/17 23:08: Arterial Blood pH 7.537H, Arterial Blood Partial Pressure CO2 29.1L, Arterial Blood Partial Pressure O2 71.3L, Arterial Blood HCO3 24.4, Arterial Blood Oxygen Saturation 95.6, Arterial Blood Base Excess 2.2, Manuel Test Positive 11/03/17 05:05: White Blood Count 10.0, Red Blood Count 2.64L, Hemoglobin 7.9L, Hematocrit 24.2L , Mean Corpuscular Volume 92, Mean Corpuscular Hemoglobin 29.8, Mean Corpuscular Hemoglobin Concent 32.5, Red Cell Distribution Width 13.1, Platelet Count 201, Mean Platelet Volume 8.5, Neutrophils (%) (Auto) , Lymphocytes (%) ( Auto) , Monocytes (%) (Auto) , Eosinophils (%) (Auto) , Basophils (%) (Auto) , Differential Total Cells Counted 100, Neutrophils % (Manual) 75, Lymphocytes % ( Manual) 12L, Monocytes % (Manual) 12H, Eosinophils % (Manual) 1, Basophils % ( Manual) 0, Band Neutrophils 0, Platelet Estimate Adequate, Platelet Morphology Normal, Red Blood Cell Morphology Normal, Sodium Level 135L, Potassium Level 4.2 , Chloride Level 97L, Carbon Dioxide Level 27, Anion Gap 11, Blood Urea Nitrogen 28H, Creatinine 1.4H, Estimat Glomerular Filtration Rate , Glucose Level 127H, Calcium Level 8.7, Total Bilirubin 0.7, Aspartate Amino Transf (AST/ SGOT) 45H, Alanine Aminotransferase (ALT/SGPT) 38, Alkaline Phosphatase 117H, Total Protein 7.2, Albumin 2.1L, Globulin 5.1, Albumin/Globulin Ratio 0.4L, Vancomycin Level Trough 7.4 11/03/17 09:45: White Blood Count 10.3, Red Blood Count 2.76L, Hemoglobin 8.2L, Hematocrit 25.1L , Mean Corpuscular Volume 91, Mean Corpuscular Hemoglobin 29.8, Mean Corpuscular Hemoglobin Concent 32.9, Red Cell Distribution Width 12.9, Platelet Count 193, Mean Platelet Volume 8.4, Neutrophils (%) (Auto) 71.2, Lymphocytes (% ) (Auto) 12.0L, Monocytes (%) (Auto) 14.8H, Eosinophils (%) (Auto) 1.2, Basophils (%) (Auto) 0.8 Current Medications Medications (Trade) Dose Ordered Sig/Mary Route PRN Reason Start Time Stop Time Status Last Admin Dose Admin Acetaminophen (Tylenol) 650 mg Q4H PRN NG fever or pain 11/01/17 09:00 12/01/17 08:59 11/02/17 20:38 Albuterol/ Ipratropium (Albuterol/ Ipratropium) 3 ml Q4HRT HHN 11/01/17 23:00 11/06/17 22:59 11/03/17 11:04 Aspirin (ASA) 81 mg DAILY GT 11/01/17 09:00 11/30/17 08:59 11/03/17 08:25 Dextrose (Dextrose 50%) STAT PRN IV Hypoglycemia 11/01/17 10:30 11/29/17 10:29 Docusate Sodium (Colace) 100 mg TWICE A DAY NG 11/02/17 10:00 12/02/17 09:59 11/03/17 08:24 Ferrous Sulfate (Feosol) 330 mg THREE TIMES A DAY NG 11/03/17 13:00 12/03/17 12:59 11/03/17 12:27 Folic Acid (Folate) 1 mg DAILY GT 11/01/17 09:00 12/01/17 08:59 11/03/17 08:25 Gabapentin (Neurontin) 100 mg THREE TIMES A DAY GT 11/01/17 09:00 11/30/17 21:59 11/03/17 12:26 Levothyroxine Sodium (Synthroid) 75 mcg DAILY@0630 GT 11/02/17 06:30 12/01/17 06:29 11/03/17 06:19 Lorazepam (Ativan) 0.5 mg BEFORE DINNER GT 11/01/17 16:30 11/08/17 16:29 11/02/17 16:12 Metoclopramide HCl (Reglan) 5 mg AC+HS NG 11/01/17 11:30 11/30/17 21:59 11/03/17 12:27 Pantoprazole (Protonix) 40 mg DAILY IVP 11/01/17 09:00 11/29/17 10:59 11/03/17 08:25 Piperacillin Sod/ Tazobactam Sod 3.375 gm/Sodium Chloride 110 ml @ 27.5 mls/hr EVERY 12 HOURS IVPB 11/01/17 09:00 11/06/17 08:59 11/03/17 08:24 Propranolol HCl (Inderal) 40 mg Q8HR ORAL 11/03/17 00:15 12/03/17 00:14 11/03/17 06:19 Tramadol HCl (Ultram) 50 mg Q6H PRN GT for back pain 11/01/17 14:45 11/07/17 20:44 11/02/17 18:46 Vancomycin HCl (Vanco rx to dose) 1 ea DAILY PRN MISC Per rx protocol 11/01/17 09:00 11/29/17 10:14 Vancomycin/Sodium Chloride 250 ml @ 166.667 mls/hr Q24H IVPB 11/04/17 06:00 11/09/17 05:59 LYDIA ANDERSEN Nov 03, 2017 14:42
[2017-11-03 16:00] VITALS: BP 103/44
[2017-11-03] MEDS: Sertraline 50mg tab ORAL SCH (18:54)
[2017-11-03 20:00] VITALS: BP 148/64
[2017-11-03] MEDS ORDERED: LORazepam 0.5mg tab GT PRN (21:00)
[2017-11-04] VITALS: BP 136/68
[2017-11-04] MEDS: traMADol 50mg tab GT PRN (02:44)
[2017-11-04] MEDS: Albuterol/Ipratropium 3ml neb HHN SCH ×3 (03:57→11:27)
[2017-11-04 04:00] VITALS: BP 127/68
[2017-11-04 05:36] LABS: HEMATOCRIT 23.9 % (37.0-47.0); HEMOGLOBIN 7.8 G/DL (12.0-16.0); MEAN CORPUSCULAR VOLUME 92 FL (80-99); PLATELET COUNT 207 K/UL (150-450); RED CELL DISTRIBUTION WIDTH 13.1 % (11.6-14.8); WHITE BLOOD COUNT 11.4 K/UL (4.8-10.8)
[2017-11-04] MEDS ORDERED: Vancomycin 750mg/NS 250ml 250 ML IVPB SCH (06:00)
[2017-11-04] MEDS: Propranolol 40mg tab ORAL SCH (06:12)
[2017-11-04] MEDS: Metoclopramide 10mg/10ml Liq NG SCH ×2 (06:13→12:06)
[2017-11-04 06:18] LABS: ALANINE AMINOTRANSFERASE 35 U/L (12-78); ALBUMIN 2.2 G/DL (3.4-5.0); ALBUMIN/GLOBULIN RATIO 0.4 (1.0-2.7); ALKALINE PHOSPHATASE 122 U/L (46-116); ANION GAP 12 mmol/L (5-15); ASPARTATE AMINO TRANSFERASE 29 U/L (15-37); BILIRUBIN,TOTAL 0.6 MG/DL (0.2-1.0); BLOOD UREA NITROGEN 30 mg/dL (7-18); CALCIUM 8.8 MG/DL (8.5-10.1); CARBON DIOXIDE 26 MMOL/L (21-32); CHLORIDE 96 MMOL/L (98-107); CREATININE 1.2 MG/DL (0.55-1.30); POTASSIUM 3.7 MMOL/L (3.5-5.1); SODIUM 134 MMOL/L (136-145)
[2017-11-04 08:00] VITALS: BP 127/79
[2017-11-04] MEDS: Ferrous Sulfate 300 MG/5 ML UDC NG SCH ×2 (08:19→12:06)
[2017-11-04] MEDS: Docusate 100mg/10ml Liq NG SCH (08:20)
[2017-11-04] MEDS: Aspirin Baby 81mg GT SCH (08:20)
[2017-11-04] MEDS: Sertraline 50mg tab ORAL SCH (08:20)
[2017-11-04] MEDS: Pantoprazole Inj IVP SCH (08:20)
--- NOTE | 2017-11-04 08:45 | Progress Note ---
DATE: 11/03/2017 CARDIOLOGY PROGRESS NOTE SUBJECTIVE: The patient has episodes of respiratory distress and has been on BiPAP at night. The patient was diuresed last evening. OBJECTIVE: VITAL SIGNS: Blood pressure is 100/50, pulse 68, respiratory rate 20. CHEST: Bilateral breath sounds. Rhonchi. HEART: Regular rhythm and rate. Normal S1 and S2. ABDOMEN: Soft. G-tube intact. EXTREMITIES: Trace edema. LABORATORY DATA: White count is 10 and hemoglobin 8.2. Potassium 4.2, BUN 28, and creatinine 1.4. Albumin 2.1. IMPRESSION: 1. Rebound sinus tachycardia, resolved with resumption of beta-olga. 2. Bilateral pneumonia, slowly resolving. 3. Acute on chronic diastolic congestive heart failure, improved with diuresis. 4. Dysphagia with gastrostomy tube, on gastrostomy tube feedings. 5. Permanent pacemaker. PLAN: 1. Continue beta-blockade. 2. Respiratory hygiene. 3. Antimicrobials. 4. No additional diuresis presently planned. 5. Outpatient pacemaker interrogation. Alvin Jenkins M.D. DR: Chriss JOB#: [id number] CC:
[2017-11-04] MEDS: Piperacillin/Tazobactam 3.375 GM in NS 110 ML IVPB SCH (09:02)
--- NOTE | 2017-11-04 11:27 | Diagnostic Imaging Report ---
Indication: Dyspnea Comparison: 11/02/2018 A single view chest radiograph was obtained. Findings: Right perihilar density, ill-defined demonstrated obscuring the right hilum and heart border. Findings could be inflammatory/infectious and appear relatively unchanged over the last 2 days. Asymmetric pulmonary edema is in the differential diagnosis. Heart size is increased. There are interstitial densities bilaterally. IMPRESSION: No change management consultant the last 2 days
[2017-11-04] MEDS ORDERED: LEVAQUIN500 MG GT (11:30)
[2017-11-04 12:00] VITALS: BP 113/60
[2017-11-04] MEDS ORDERED: NS 275ml ONE ×2 (13:38)
[2017-11-04] MEDS ORDERED: Sterile Water Irrig 1000ml IRRIG ONE ×3 (13:38)
[2017-11-04] MEDS ORDERED: NS 500ML ONE (13:38)
[2017-11-04] MEDS ORDERED: Tubing IV Secondary IV ONE ×3 (13:38)
--- NOTE | 2017-11-04 22:03 | Progress Note ---
DATE: 11/04/2017 CARDIOLOGY PROGRESS NOTE SUBJECTIVE: The patient feels better. No shortness of breath. Less congested. OBJECTIVE: VITAL SIGNS: Blood pressure 113/60, pulse 67, respirations 18, and oxygenating on 3 liters 94%. LUNGS: Few rhonchi. HEART: Regular rhythm and rate. Normal S1 and S2. ABDOMEN: Soft. EXTREMITIES: Trace edema. LABORATORY AND DIAGNOSTIC DATA: Chest x-ray today revealed no interval change with persistent right perihilar density with cardiomegaly. There is possibility of asymmetric pulmonary edema. White count 11 and hemoglobin 7.8. Potassium 3.7, BUN 30, and creatinine 1.2. IMPRESSION: 1. Aspiration pneumonia. 2. Acute on chronic diastolic congestive heart failure, clinically compensated. 3. Anemia of chronic disease. 4. Chronic hypoxia. 5. Severe protein-calorie malnutrition. 6. Permanent pacemaker with stable function. PLAN: 1. Continue iron replacement. 2. Nutrition by feeding tube. 3. Antiplatelet therapy with aspirin. Hold if signs of bleeding noted. 4. Continue beta-olga. 5. Thyroid replacement. 6. No role for chronic diuretic therapy at this time. 7. Discharge planning per primary care physician. Alvin Jenkins M.D. DR: NORY JOB#: [id number] CC:
--- NOTE | 2017-11-05 15:46 | Discharge Summary ---
Discharge Summary Hospital Course Date of Admission Oct 30, 2017 at 04:16 Date of Discharge Nov 04, 2017 at 13:39 Admitting Diagnosis pneumonia , hypoxia HPI Radha Delong is a 82 year old female who was admitted on Oct 30, 2017 at 04:16 for Pneumonia, Hypoxia Hospital Course [id number] Discharge Discharge Disposition Patient was discharged to Home with Home Health(06) Discharge Diagnoses: Zari Mendoza NP Nov 05, 2017 15:46
--- NOTE | 2017-11-05 18:00 | Discharge Summary 2 SIG ---
DATE OF ADMISSION: 10/30/2017 DATE OF DISCHARGE: 11/04/2017 PHOTOVOLTAIC TESTING TECHNICIAN: Alvin Jenkins M.D. BRIEF HOSPITAL COURSE: The patient is an 82-year-old female, who came from home, was brought in by paramedics. She had been ill for several days and had cough, suddenly developed worsening symptoms with high fever. She was taken by paramedics to the emergency department and was evaluated and found to have respiratory failure with sepsis and high fever. Chest x-ray showed right lower lobe infiltrate and WBC was elevated to 1600. Blood gas with respiratory acidosis. She was placed on BiPAP and admission was arranged. She was Do Not Resuscitate. She has past medical history significant for cervical fracture several years ago and had dysphagia since that time. She had long-term feeding tube and had pneumonia for few times. She has history of hypertension and hypothyroidism and has a pacemaker. She has history of chronic obstructive pulmonary disease. O2 was titrated. Later on the evening of admission, she became increasingly hypotensive and was given fluid challenge without adequate response. She was transferred to intensive care unit. Troponin was 0.174. Unable to be give IV diuresis due to low blood pressure. She was eventually taken off IV pressors. She was noted to have rebound sinus tachycardia. She has been off her usual dose of Inderal. Beta-olga was resumed. She was finally able to be given IV diuresis. Blood pressure was stable. She was taken off of BiPAP and was placed on Venti mask. She had venous duplex of lower extremity that was negative for DVT. She was given antiplatelet therapy with aspirin. No role for chronic diuretic therapy at this time. She underwent PT and OT. She was eventually discharged home with home health for physical therapy. FINAL DIAGNOSES: 1. Sepsis with shock resolved. 2. Aspiration pneumonia. 3. Dysphagia on G-tube. 4. Chronic obstructive pulmonary disease. 5. Acute on chronic renal failure. 6. Acute myocardial ischemia. 7. Acute diastolic congestive heart failure. 8. Pleural effusion. DISPOSITION: The patient was discharged home with home health. DISCHARGE MEDICATION: Refer to medication list. DISCHARGE INSTRUCTIONS: Follow up with PMD in a week. Stanislaw Epps M.D. I have been assigned to dictate discharge summary on this account and I was not involved in the patient's management. Zari Mendoza N.P. DR: GARRETT JOB#: [id number] CC:
--- NOTE | 2017-11-15 20:33 | Diagnostic Imaging Report ---
APPROVED REPORT CPT Code: 86099 Present Symptoms Lower Extremity Pain: Comments: R/O DVT. BILATERAL LOWER EXTREMITY VENOUS DUPLEX: Imaging reveals a patent deep venous system bilaterally. There is no evidence of thrombus within the femoral, popliteal or tibial segments. The greater saphenous veins are also within normal limits. Doppler indicates normal spontaneous flow within these segments.
== END 2017-11-04 13:39 | disposition home health service (06) | DRG 871 ==
LOC: EDBD 03:37 → EMR 04:13 → 2W 04:16 → UNDOADMIN 04:16 → EDBEDREQ 15:59 → 2W 20:46 → ICU 23:08 → 2W 11-01 07:50
PROC: 5A09457 Assistance with Respiratory Ventilation, 24-96 Consecutive Hours, Continuous Positive Airway Pressure (ICD-10-PCS; principal; 2017-10-30)
DX: A41.9 Sepsis, unspecified organism (principal); J96.21 Acute and chronic respiratory failure with hypoxia; R65.21 Severe sepsis with septic shock; J69.0 Pneumonitis due to inhalation of food and vomit; E43 Unspecified severe protein-calorie malnutrition; R13.10 Dysphagia, unspecified; I51.3 Intracardiac thrombosis, not elsewhere classified; I50.33 Acute on chronic diastolic (congestive) heart failure; N17.9 Acute kidney failure, unspecified; I13.0 Hypertensive heart and chronic kidney disease with heart failure and stage 1 through stage 4 chronic kidney disease, or unspecified chronic kidney disease; R09.02 Hypoxemia; D63.8 Anemia in other chronic diseases classified elsewhere; Z66 Do not resuscitate; E03.9 Hypothyroidism, unspecified; Z95.0 Presence of cardiac pacemaker; Y95 Nosocomial condition; N18.9 Chronic kidney disease, unspecified; Z68.26 Body mass index [BMI] 26.0-26.9, adult
CPT/HCPCS: 36415; 36600; 71045; 80048; 80053; 80202; 81003; 82550; 82553; 82803; 82962; 83605; 83735; 83880; 84484; 85007; 85025; 85610; 85730; 86710; 87040; 87070; 87181; 87205; 93005; 93970; 94640; 94660; 94664; 94760; 99291; J7620